=== PATIENT | female | born 1995 | race Caucasian/White ===

== ENCOUNTER 2018-02-12 08:08 | Day surgery (SDC) | payer BC ==
[~2018-02-12 08:08] MED LIST: Lactated Ringers 1,000 ML IV SCH; Lidocaine 1%/Sod Bicarbonate in NS 8.4% 1 ML Syringe IDERM PRN; Scopolamine 1.5 MG Transdermal Patch TOP SCH; Sodium Chloride 0.9% 10 ML Syringe FLUSH PRN
[2018-02-12] MEDS ORDERED: EPINEPHrine 1 MG/ML 30 ML MDV ONE (09:30)
[2018-02-12] MEDS ORDERED: Bupivacaine 0.25% 30 ML SDV ONE (09:30)
[2018-02-12] MEDS ORDERED: Midazolam 1 MG/ML 2 ML SDV ONE (09:33)
[2018-02-12] MEDS ORDERED: Lidocaine 1% 4 ML ONE (09:33)
[2018-02-12] MEDS ORDERED: Dexamethasone 4 MG/ML SDV ONE (09:33)
[2018-02-12] MEDS ORDERED: Ondansetron 4 MG/2 ML SDV ONE (09:33)
[2018-02-12] MEDS ORDERED: fentaNYL 250 MCG/5 ML SDV ONE (09:33)
[2018-02-12] MEDS ORDERED: Propofol 200 MG/20 ML SDV ONE ×2 (09:33→09:34)
--- NOTE | 2018-02-12 09:37 | PCM.PREANE ---
Preanesthetic Assessment - Anesthesia/Transfusion/Family Hx Anesthesia History: Prior Anesthesia Reaction Type of Anesthesia Reaction: Excessive Somnolence, Excessive Nausea/Vomiting Family History of Anesthesia Reaction: No - Review of Systems General: No Symptoms Pulmonary: No Symptoms Cardiovascular: No Symptoms Gastrointestinal: No Symptoms Neurological: Dizziness, Pre-Existing Deficit (Chronic pain from rib fractures. ), Tremors (Right hand) - Physical Assessment NPO Status Date: 02/11/18 NPO Status Time: 23:00 O2 Sat by Pulse Oximetry: 97 Respiratory Rate: 16 Vital Signs: Last Vital Signs Temp 37.1 C 02/12/18 09:10 Pulse 93 02/12/18 09:10 Resp 16 02/12/18 09:10 BP 136/88 02/12/18 09:10 Pulse Ox 97 02/12/18 09:10 Height: 1.8 m Weight: 125.192 kg ASA Class: 2 Mental Status: Alert & Oriented x3 Airway Class: Mallampati = 1 Dentition: Reports: Normal Dentition (Wire behind upper teeth. Permanent.) Thyro-Mental Finger Breadths: 3 Mouth Opening Finger Breadths: 3 ROM/Head Extension: Full Lungs: Clear to Auscultation, Normal Respiratory Effort Cardiovascular: Regular Rate, Regular Rhythm, Murmurs - Lab Values: Laboratory Last Values Urine HCG, Qual Negative (NEGATIVE) 02/12/18 08:30 MRSA (PCR) Negative 01/27/18 16:02 - Allergies Allergies/Adverse Reactions: Allergies Allergy/AdvReac Type Severity Reaction Status Date / Time alprazolam [From Xanax] Allergy Chest Pain Verified 02/11/18 12:12 latex Allergy Itching Verified 02/11/18 12:12 triamcinolone Allergy Hives Verified 02/11/18 12:12 - Acknowledgements Anesthesia Type Planned: General Anesthesia, Regional Block (Adductor Canal Block Post Op ) Pt an Appropriate Candidate for the Planned Anesthesia: Yes Alternatives and Risks of Anesthesia Discussed w Pt/Guardian: Yes Pt/Guardian Understands and Agrees with Anesthesia Plan: Yes PreAnesthesia Questionnaire HEENT History: Reports: Allergic Rhinitis, Other (See Below) Other HEENT History: Maxillary sinus cyst Cardiovascular History: Reports: Heart Murmur Respiratory History: Reports: SOB, Other (See Below) Other Respiratory History: Painful respiration from rib fractures, chest tightness Other Gastrointestinal History: Abdominal pain Genitourinary History: Reports: Pyelonephritis 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) Other OB/BYN History: Irregular menses, menorrhagia Other Musculoskeletal History: Rib pain, rib fractures Neurological History: Reports: Vertigo, Other (See Below) Other Neuro History: Right hand tremors Psychiatric History: Reports: None Endocrine/Metabolic History: Reports: Obesity/BMI 30+ Hematologic History: Reports: None Immunologic History: Reports: None Oncologic (Cancer) History: Reports: None Dermatologic History: Reports: Eczema - Infectious Disease History Infectious Disease History: Reports: None - Past Surgical History Head Surgeries/Procedures: Reports: None HEENT Surgical History: Reports: None Cardiovascular Surgical History: Reports: None Respiratory Surgical History: Reports: None GI Surgical History: Reports: Appendectomy, Cholecystectomy Female Surgical History: Reports: None Endocrine Surgical History: Reports: None Neurological Surgical History: Reports: None Musculoskeletal Surgical History: Reports: Other (See Below) Other Musculoskeletal Surgeries/Procedures:: Bunionectomy Oncologic Surgical History: Reports: None Dermatological Surgical History: Reports: None - SUBSTANCE USE Smoking Status *Q: Never Smoker Tobacco Use Within Last Twelve Months: No Second Hand Smoke Exposure: No Days Per Week of Alcohol Use: 0 Recreational Drug Use History: No - HOME MEDS Home Medications: Home Meds Calcium Carb/D3/Magnesium/Zinc [Lico Mag Zinc + D Tablet] 1 tab PO DAILY [History] Cholecalciferol (Vitamin D3) [Vitamin D3] 2,000 unit PO DAILY 02/11/18 [History] Cyanocobalamin (Vitamin B12) [Vitamin B12] 1,000 mcg PO DAILY 02/11/18 [History] Loratadine [Claritin] 10 mg PO DAILY PRN 02/11/18 [History] Multivitamin [Daily Multiple Vitamin] 1 tab PO DAILY 02/11/18 [History] Vitamin B6-pyridOXINE [Vitamin B6] 100 mg PO DAILY 02/11/18 [History] Acetaminophen/HYDROcodone [[place] 325-5 MG] 1 - 2 tab PO Q6H PRN #40 tablet 02/12 [Rx] Aspirin 325 mg PO BID #84 tab 02/12/18 [Rx] - CURRENT (IN HOUSE) MEDS Current Meds: Current Medications Lactated Ringer's (Ringers, Lactated) 1,000 mls @ 125 mls/hr IV ASDIRECTED ZUHAIR Stop: 02/12/18 18:00 Last Admin: 02/12/18 09:21 Dose: 125 mls/hr Lidocaine/Sodium Bicarbonate (Buffered Lidocaine 1% In Ns 8.4%) 0.25 ml IDERM ONETIME PRN PRN Reason: Prior to IV Start Stop: 02/12/18 18:00 Last Admin: 02/12/18 09:00 Dose: 0.25 ml Scopolamine (Transderm-Scop) 1.5 mg TOP ONETIME ZUHAIR Stop: 02/12/18 18:00 Last Admin: 02/12/18 09:03 Dose: 1.5 mg Sodium Chloride (Saline Flush) 10 ml FLUSH ASDIRECTED PRN PRN Reason: Keep Vein Open Stop: 02/12/18 18:00 Discontinued Medications Bupivacaine HCl (Marcaine 0.25%) Confirm Administered Dose 30 ml .ROUTE .STK- MED ONE Stop: 02/12/18 09:31 Epinephrine HCl (Adrenalin) Confirm Administered Dose 30 mg .ROUTE .STK-MED ONE Stop: 02/12/18 09:31 Lactated Ringer's (Ringers, Lactated) 1,000 mls @ 125 mls/hr IV ASDIRECTED ZUHAIR Stop: 02/12/18 18:00 Lidocaine/Sodium Bicarbonate (Buffered Lidocaine 1% In Ns 8.4%) 0.25 ml IDERM ONETIME PRN PRN Reason: Prior to IV Start Stop: 02/12/18 18:00 Sodium Chloride (Saline Flush) 10 ml FLUSH ASDIRECTED PRN PRN Reason: Keep Vein Open Stop: 02/12/18 18:00
[2018-02-12] MEDS ORDERED: ceFAZolin 1 GM Vial ONE ×2 (09:42→10:16)
[2018-02-12] MEDS ORDERED: EPINEPHrine 1 MG/ML 30 ML MDV SCH (09:45)
[2018-02-12] MEDS ORDERED: Ketamine 500 mg/10 ML MDV ONE (10:12)
[2018-02-12] MEDS ORDERED: HYDROmorphone 0.5 MG/0.5 ML Syringe ONE (10:37)
[2018-02-12] MEDS ORDERED: Meperidine PF 50 MG/ML Syringe ONE (10:58)
--- NOTE | 2018-02-12 11:03 | PCM.POSTAN ---
POST ANESTHESIA ASSESSMENT - MENTAL STATUS Mental Status: Somnolent - VITAL SIGNS Pulse Rate: 82 SaO2: 97 Resp Rate: 17 Blood Pressure: 128/69 Temperature: 36.4 C - RESPIRATORY Respiratory Status: Respiratory Rate WNL, Airway Patent, O2 Saturation Stable, Supplemental Oxygen - CARDIOVASCULAR CV Status: Pulse Rate WNL, Blood Pressure Stable - GASTROINTESTINAL GI Status: No Symptoms - PAIN Pain Score: 0 - POST OP HYDRATION Hydration Status: Adequate & Stable
[2018-02-12] MEDS ORDERED: fentaNYL 100 MCG/2 ML SDV IVPUSH PRN (11:06)
[2018-02-12] MEDS ORDERED: diphenhydrAMINE 50 MG/ML SDV IVPUSH PRN (11:06)
[2018-02-12] MEDS ORDERED: HYDROmorphone 0.5 MG/0.5 ML Syringe IVPUSH ONE (11:06)
[2018-02-12] MEDS ORDERED: Ondansetron 4 MG/2 ML SDV IVPUSH PRN (11:06)
[2018-02-12] MEDS ORDERED: Meperidine PF 50 MG/ML Syringe IVPUSH PRN (11:06)
[2018-02-12 14:43] VITALS: BP 128/69
--- NOTE | 2018-02-12 14:43 | PCM48HPAN ---
Post Anesthesia Note - EVALUATION WITHIN 48HRS OF ANESTHETIC Vital Signs in Normal Range: Yes Patient Participated in Evaluation: Yes Respiratory Function Stable: Yes Airway Patent: Yes Cardiovascular Function Stable: Yes Hydration Status Stable: Yes Pain Control Satisfactory: Yes Nausea and Vomiting Control Satisfactory: Yes Mental Status Recovered: Yes Pulse Rate: 82 Resp Rate: 20 Temperature: 36.4 C Blood Pressure: 128/69
--- NOTE | 2018-02-17 07:04 | PCM.OPNOTE ---
- General Post-Op/Procedure Note Date of Surgery/Procedure: 02/12/18 Operative Procedure(s): right knee video arthrosocpy with chondroplasty of the patella Pre Op Diagnosis: right knee patellofemoral malalignment Post-Op Diagnosis: right knee patellar chondromalacia Anesthesia Technique: General LMA, Local Primary Surgeon: Ton Billy Anesthesia Provider: Juan C Wright Automation Operator: Elsa Louie EBErick in mLs: 5 Complications: None Condition: Good
--- NOTE | 2018-02-17 07:42 | OR ---
DATE OF OPERATION: 02/12/2018 SURGEON: Ton Billy MD OPERATION PERFORMED: Right knee video arthroscopy with chondroplasty of the patella. PREOPERATIVE DIAGNOSIS: Right knee patellofemoral malalignment. POSTOPERATIVE DIAGNOSIS: Right knee patellar chondromalacia. ANESTHESIA: General LMA with local. ANESTHESIA PROVIDER: Juan C Wright. CAMERA MACHINIST: Elsa Louie PA-C. ESTIMATED BLOOD LOSS: Less than 5 mL. COMPLICATIONS: None. CONDITION: Stable. DESCRIPTION OF PROCEDURE: The patient was identified in the preoperative holding area. Proper site was marked and identified by the surgeon. The patient was taken back to the operating theater, where after adequate anesthesia, the patient was placed supine on a radiolucent table. Right lower extremity was then sterilely prepped and draped in the usual sterile fashion. OR time-out was performed. The patient received 2 g of IV Ancef. Right lower extremity was then exsanguinated. Tourniquet was insufflated to 250 mmHg. Standard anterolateral portal incision was created and scope trocar was introduced. The patient had no loose foreign bodies. The patient did have significant grade 2 chondromalacia of the medial facet. At this time, attention was turned to the medial compartment. There were no signs of chondromalacia or medial meniscus tear. ACL was intact in the notch. Lateral compartment showed no signs of chondromalacia or lateral meniscus tear. At this time, a posterolateral portal was then made, and the patient's knee was brought through range of motion, it was shown to have no lateral subluxation of the patella whatsoever as it was brought through range of motion. At this time, a chondroplasty of the medial facet was then performed back to a smooth border. Excess saline was drained from the knee. A 3-0 nylon simple suture was used for closure of the skin. The patient was sent to PACU in stable condition, in a sterile soft dressing. MMODAL /[id number]
== END 2018-02-12 14:10 | disposition home or self-care (01) ==
LOC: JD.SDS 08:08
PROVIDERS: ATTEND Orthopaedic Surgery
DX: M22.41 Chondromalacia patellae, right knee (principal); E66.9 Obesity, unspecified; J30.2 Other seasonal allergic rhinitis; Z90.49 Acquired absence of other specified parts of digestive tract; Z88.8 Allergy status to other drugs, medicaments and biological substances; Z91.040 Latex allergy status; Z79.899 Other long term (current) drug therapy; Z68.37 Body mass index [BMI] 37.0-37.9, adult
CPT/HCPCS: 29877; 81025; 87641; A9270; J0171; J0690; J1100; J1170; J2001; J2175; J2250; J2405; J3010; J3490; J7120; 01400; J2704

== ENCOUNTER 2018-02-16 12:09 | Emergency (ER) | payer BC ==
[2018-02-16 12:17] VITALS: BP 140/93
--- NOTE | 2018-02-16 12:34 | EDM.PDOC ---
<Babita Arellano - Last Filed: 02/16/18 12:23> ED HPI GENERAL MEDICAL PROBLEM - General Chief Complaint: Lower Extremity Injury/Pain Stated Complaint: POST SURGICAL ISSUES,RIGHT LEG Time Seen by Provider: 02/16/18 12:15 Right Knee Pain Score (Numeric/FACES): 3 - Related Data Allergies Allergy/AdvReac Type Severity Reaction Status Date / Time alprazolam [From Xanax] Allergy Chest Pain Verified 02/16/18 12:16 latex Allergy Itching Verified 02/16/18 12:16 triamcinolone Allergy Hives Verified 02/16/18 12:16 Home Meds: Home Meds Calcium Carb/D3/Magnesium/Zinc [Lico Mag Zinc + D Tablet] 1 tab PO DAILY [History] Cholecalciferol (Vitamin D3) [Vitamin D3] 2,000 unit PO DAILY 02/11/18 [History] Cyanocobalamin (Vitamin B12) [Vitamin B12] 1,000 mcg PO DAILY 02/11/18 [History] Loratadine [Claritin] 10 mg PO DAILY PRN 02/11/18 [History] Multivitamin [Daily Multiple Vitamin] 1 tab PO DAILY 02/11/18 [History] Vitamin B6-pyridOXINE [Vitamin B6] 100 mg PO DAILY 02/11/18 [History] Acetaminophen/HYDROcodone [[place] 325-5 MG] 1 - 2 tab PO Q6H PRN #40 tablet 02/12 [Rx] Aspirin 325 mg PO BID #84 tab 02/12/18 [Rx] Past Medical History HEENT History: Reports: Allergic Rhinitis, Other (See Below) Other HEENT History: Maxillary sinus cyst Cardiovascular History: Reports: Heart Murmur Respiratory History: Reports: SOB, Other (See Below) Other Respiratory History: Painful respiration from rib fractures, chest tightness Other Gastrointestinal History: Abdominal pain Genitourinary History: Reports: Pyelonephritis 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) Other OB/BYN History: Irregular menses, menorrhagia Other Musculoskeletal History: Rib pain, rib fractures Neurological History: Reports: Vertigo, Other (See Below) Other Neuro History: Right hand tremors Psychiatric History: Reports: None Endocrine/Metabolic History: Reports: Obesity/BMI 30+ Hematologic History: Reports: None Immunologic History: Reports: None Oncologic (Cancer) History: Reports: None Dermatologic History: Reports: Eczema - Infectious Disease History Infectious Disease History: Reports: None - Past Surgical History Head Surgeries/Procedures: Reports: None HEENT Surgical History: Reports: None Cardiovascular Surgical History: Reports: None Respiratory Surgical History: Reports: None GI Surgical History: Reports: Appendectomy, Cholecystectomy Female Surgical History: Reports: None Endocrine Surgical History: Reports: None Neurological Surgical History: Reports: None Musculoskeletal Surgical History: Reports: Other (See Below) Other Musculoskeletal Surgeries/Procedures:: Bunionectomy Oncologic Surgical History: Reports: None Dermatological Surgical History: Reports: None Social & Family History - Caffeine Use Caffeine Use: Reports: None Course - Vital Signs Last Recorded V/S: Last Vital Signs Temp 97.0 F 02/16/18 12:13 Pulse 93 02/16/18 12:13 Resp 16 02/16/18 12:13 BP 140/93 H 02/16/18 12:13 Pulse Ox 99 02/16/18 12:13 - Orders/Labs/Meds Orders: Active Orders 24 hr Category Date Time Status Cardiac Monitoring [RC] . DIRECTED Care 02/16/18 12:37 Active Head wo Cont [CT] Stat Exams 02/16/18 12:39 Taken VL Duplex Lwr Ext Veins Ltd Rt [US] Stat Exams 02/16/18 13:50 Taken Labs: Laboratory Tests 02/16/18 02/16/18 02/16/18 Range/Units 13:04 13:04 13:04 WBC 12.49 H (3.98-10.04) K/mm3 RBC 4.76 (3.98-5.22) M/mm3 Hgb 13.6 (11.2-15.7) gm/L Hct 40.8 (34.1-44.9) % MCV 85.7 (79.4-94.8) fl MCH 28.6 (25.6-32.2) pg MCHC 33.3 (32.2-35.5) g/dl RDW Std Deviation 43.0 (36.4-46.3) fL Plt Count 357 (182-369) K/mm3 MPV 8.9 L (9.4-12.3) fl Neut % (Auto) 71.3 H (34.0-71.1) % Lymph % (Auto) 19.7 (19.3-51.7) % Dickens % (Auto) 5.8 (4.7-12.5) % Eos % (Auto) 2.8 (0.7-5.8) Baso % (Auto) 0.2 (0.1-1.2) % Neut # (Auto) 8.90 H (1.56-6.13) K/mm3 Lymph # (Auto) 2.46 (1.18-3.74) K/mm3 Dickens # (Auto) 0.73 H (0.24-0.36) K/mm3 Eos # (Auto) 0.35 (0.04-0.36) K/mm3 Baso # (Auto) 0.02 (0.01-0.08) K/mm3 ESR 28 H (0-20) mm/hr Sodium 135 L (136-145) mEq/L Potassium 3.8 (3.5-5.1) mEq/L Chloride 101 (98-107) mEq/L Carbon Dioxide 26 (21-32) mEq/L Anion Gap 11.8 (5-15) BUN 11 (7-18) mg/dL Creatinine 0.8 (0.55-1.02) mg/dL Est Cr Clr Drug Dosing 124.33 mL/min Estimated GFR (MDRD) > 60 (>60) mL/min BUN/Creatinine Ratio 13.8 L (14-18) Glucose 97 (74-106) mg/dL Calcium 9.5 (8.5-10.1) mg/dL Magnesium 1.9 (1.8-2.4) mg/dl Total Bilirubin 0.6 (0.2-1.0) mg/dL AST 22 (15-37) U/L ALT 35 (14-59) U/L Alkaline Phosphatase 71 (46-116) U/L C-Reactive Protein 2.3 H* (<1.0) mg/dL Total Protein 7.7 (6.4-8.2) g/dl Albumin 3.7 (3.4-5.0) g/dl Globulin 4.0 gm/dL Albumin/Globulin Ratio 0.9 L (1-2) Meds: Medications Discontinued Medications Generic Name Dose Route Start Last Admin Trade Name Freq PRN Reason Stop Dose Admin Hydrocodone Bitart/Acetaminophen 2 tab 02/16/18 14:33 02/16/18 14:43 [place] 325-5 Mg PO 02/16/18 14:34 1 tab ONETIME ONE Administration Ondansetron HCl 4 mg 02/16/18 13:51 02/16/18 13:57 Zofran Odt PO 02/16/18 13:52 4 mg ONETIME ONE Administration Departure - Departure Disposition: Home, Self-Care 01 Clinical Impression: Numbness in right leg, Postoperative pain of right knee - Discharge Information Referrals: Yasmin Lay NP [Primary Care Provider] - 1 Week Stephon Juarez MD [Ordering Only Provider] - Forms: ED Department Discharge Additional Instructions: Continue with Dr Billy's post operative plan. I have scheduled an MRI of your brain tomorrow at 9am. Please come at 8:30am to register. Follow up with Dr Juarez. Please return if you are worse. - My Orders Last 24 Hours: My Active Orders 02/16/18 12:37 Cardiac Monitoring [RC] . DIRECTED 02/16/18 12:39 Head wo Cont [CT] Stat 02/16/18 13:50 VL Duplex Lwr Ext Veins Ltd Rt [US] Stat - Assessment/Plan Last 24 Hours: My Active Orders 02/16/18 12:37 Cardiac Monitoring [RC] . DIRECTED 02/16/18 12:39 Head wo Cont [CT] Stat 02/16/18 13:50 VL Duplex Lwr Ext Veins Ltd Rt [US] Stat <Keenan Campa - Last Filed: 02/16/18 15:28> ED HPI GENERAL MEDICAL PROBLEM - General Source of Information: Reports: Patient History Limitations: Reports: No Limitations - History of Present Illness INITIAL COMMENTS - FREE TEXT/NARRATIVE: The patient presents with right knee pain and numbness. She had a knee scope by Dr Bilyl on the 12 of February. She said for a few days before that she had some numbness in the right leg. This did get better before the surgery but it was not gone. They did general anaesthesia. When she woke up, she had numbness to her right leg from just above the knee and down. They had a hard time getting a pulse in that leg. That slowly got better and she was able to be discharged. Two days later she developed the numbness in her right leg from just above the knee to her foot. She still has good strength. She also has pain behind her knee and lateral to her knee. She gets diaphoretic and nauseated when she takes the aspirin. She has no history of DVT or PE. She said she was diagnosed with vertigo a while back. She was seen here, [place] and then [place] and it was vertigo. She also had a tremor in her right hand that was gone after surgery. She denies fever, chills, cough, chest pain or shortness of breath. She does have a slight frontal headache. She has no neurologic deficits anywhere else. Onset: Gradual Duration: Day(s): Location: Reports: Lower Extremity, Right Quality: Reports: Other (Numbness) Severity: Severe Improves with: Reports: None Worsens with: Reports: None Associated Symptoms: Reports: No Other Symptoms Review of Systems - Review of Systems Review Of Systems: See Below Constitutional: Reports: No Symptoms Eyes: Reports: No Symptoms Ears: Reports: No Symptoms Nose: Reports: No Symptoms Mouth/Throat: Reports: No Symptoms Respiratory: Reports: No Symptoms Cardiovascular: Reports: No Symptoms GI/Abdominal: Reports: No Symptoms Genitourinary: Reports: No Symptoms Musculoskeletal: Reports: Other (Pain to right knee and numbness to that leg) ED EXAM, GENERAL - Physical Exam Exam: See Below Exam Limited By: No Limitations General Appearance: Alert, No Apparent Distress Ears: Normal External Exam Nose: Normal Inspection Head: Atraumatic, Normocephalic Neck: Normal Inspection Respiratory/Chest: No Respiratory Distress, Lungs Clear, Normal Breath Sounds Cardiovascular: Regular Rate, Rhythm, No Edema, No Murmur GI/Abdominal: Soft, Non-Tender, No Organomegaly, No Mass Back Exam: Normal Inspection Extremities: Other (2 lateral incisions to the right knee with pain upon palpation and mild edema. Good pulses distally. Grossly numb to just above the knee to her foot) Neurological: Alert, Oriented, Other (Equal strength in her legs but she is grossly numb from just above the knee to her foot on the right side.) Course - Re-Assessments/Exams Free Text/Narrative Re-Assessment/Exam: 02/16/18 14:59 I ordered an US of her leg, CT of her head and labs. She had some nausea so I ordered zofran and some hydrocodone for the pain. 02/16/18 15:23 Her WBC was 12.49. Her CRP was elevated at 2.3. Her ESR was elevated at 28. The CT of her head shows nothing acute. The US of her leg shows no DVT. She still has the numbness. I am not sure what is going on with the numbness. I will get an MRI of her brain tomorrow. I will call Dr Billy and let him know what is going on. Departure - Departure Time of Disposition: 15:30 Condition: Good
[2018-02-16] MEDS ORDERED: Ondansetron 4 MG Tab.DIS PO ONE (13:51)
[2018-02-16] MEDS ORDERED: Acetaminophen/HYDROcodone 325-5 MG Tab PO ONE (14:33)
--- NOTE | 2018-02-17 08:41 | US ---
Right lower extremity deep venous ultrasound: Duplex and color flow imaging was obtained of the right common femoral, superficial femoral, proximal greater saphenous, popliteal, posterior tibial and peroneal veins. Left common femoral vein was also evaluated. Poor phasic flow seen within the peroneal vein but normal compression and augmentation seen within this vein. Other veins show normal phasic flow, augmentation and compression. Impression: 1. No evidence of deep venous thrombosis within the right lower extremity or within the left common femoral vein. Diagnostic code #1 I agree with preliminary report from [facility], finalized at 04/18/18, 3:51 PM Central Time
--- NOTE | 2018-02-17 09:25 | CT ---
Head CT Technique: Multiple axial sections through the brain were obtained. Intravenous contrast was not utilized. Comparison: Prior head CT study of 03/28/15 and MRI of 04/14/15. Findings: Ventricles along with basal cisterns and sulci over the convexities are within normal limits. Mild areas of mucosal thickening are noted within the ethmoid and sphenoid sinuses which is felt to be incidental and chronic. No acute calvarial abnormality is seen. No abnormal parenchymal densities are seen. No evidence of intracranial hemorrhage. No midline shift or mass effect is seen. Impression: 1. Sinus findings felt to be incidental. 2. No acute intracranial abnormality is identified. Diagnostic code #2 I agree with preliminary report from [facility], finalized at 02/16/18, 2:25 PM Central Time
== END 2018-02-16 15:35 | disposition home or self-care (01) ==
LOC: JD.ED 12:09
DX: G89.18 Other acute postprocedural pain (principal); M25.561 Pain in right knee; R20.0 Anesthesia of skin; Z79.899 Other long term (current) drug therapy; Z91.040 Latex allergy status; Z88.8 Allergy status to other drugs, medicaments and biological substances
CPT/HCPCS: 36415; 70450; 80053; 83735; 85025; 85652; 86140; 93971; 99284; A9270; 99283

== ENCOUNTER 2019-11-16 15:50 | Emergency (ER) | payer BC ==
[2019-11-16 16:25] VITALS: BP 148/87; PULSE 84
--- NOTE | 2019-11-16 16:58 | EDM.PDOC ---
ED HPI GENERAL MEDICAL PROBLEM - General Chief Complaint: Abdominal Pain Stated Complaint: VOMITING/NUMBNESS IN LEGS Time Seen by Provider: 11/16/19 16:57 Source of Information: Reports: Patient History Limitations: Reports: No Limitations - History of Present Illness INITIAL COMMENTS - FREE TEXT/NARRATIVE: 24-year-old female presents to the ED with diffuse epigastric abdominal pain. Did not feel well at work today legs were weak complains of increased pain in all of her joints. Patient has fibromyalgia syndrome. Her to feel nauseated about 1300 hrs. and this progressed to finally vomiting at 1500 hrs. and on the second emesis it contained about a teaspoon of fresh blood. She has never had hematemesis before. She has a history of gallbladder removal in 2013 and appendectomy 2014. Chronic loose stools usually 1 to 3/day since her gallbladder was removed. Was noted to have free reflux of bile salts into her stomach on a recent wisdom tooth extraction on suctioning. She does not use any anti-inflammatories. She takes cyclobenzaprine as needed for her chronic myalgia fibromyalgia. Never been on Tums or Rolaids. She is recently started on iron supplement due to a very low serum iron with maintained hemoglobin in the 14s. Took the first tablet of this at 1400 hrs. today. She reports however she was already nauseated before she took that tablet. She is lying in the left position and having significant epigastric abdominal pain. Remains nauseated on a intermittent basis. She is on her third day of her menstrual cycle and denies any possibility of . Does have very heavy menses which is felt to be contributing to the iron deficiency. 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 Onset: Today Onset Date: 11/16/19 Onset Time: 15:00 (Vomited twice 15 minutes apart without any dry heaving or retching in between.) Duration: Minutes: Location: Reports: Abdomen Quality: Reports: Ache (Pain in the epigastrium rating through to her back), Burning, Stabbing Severity: Moderate Improves with: Reports: None Worsens with: Reports: Breathing (Breathing makes the pain worse.) Context: Denies: Activity, Exercise, Lifting, Sick Contact, Trauma, Other Associated Symptoms: Reports: Loss of Appetite, Malaise, Nausea/Vomiting ( Hematemesis.), Weakness. 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.) Headache Pain Score (Numeric/FACES): 4 - Related Data Allergies Allergy/AdvReac Type Severity Reaction Status Date / Time alprazolam [From Xanax] Allergy Chest Pain Verified 11/16/19 16:24 latex Allergy Itching Verified 11/16/19 16:24 triamcinolone Allergy Hives Verified 11/16/19 16:24 Home Meds: Home Meds Calcium Carb/D3/Magnesium/Zinc [Lico Mag Zinc + D Tablet] 1 tab PO DAILY [History] Cholecalciferol (Vitamin D3) [Vitamin D3] 5,000 unit PO DAILY 02/11/18 [History] Cyanocobalamin (Vitamin B12) [Vitamin B12] 1,000 mcg PO DAILY 02/11/18 [History] Loratadine [Claritin] 10 mg PO DAILY PRN 02/11/18 [History] Multivitamin [Daily Multiple Vitamin] 1 tab PO DAILY 02/11/18 [History] Vitamin B6-pyridOXINE [Vitamin B6] 100 mg PO DAILY 02/11/18 [History] Acetaminophen/HYDROcodone [[place] 325-5 MG] 1 - 2 tab PO Q6H 04/11/18 [History] Amitriptyline [Elavil] 25 mg PO BEDTIME 04/11/18 [History] Ashwagandha 800 mg PO DAILY 04/11/18 [History] Cyclobenzaprine [Flexeril] 10 mg PO DAILY 04/11/18 [History] DULoxetine [Cymbalta] 20 mg PO DAILY 04/11/18 [History] Past Medical History HEENT History: Reports: Allergic Rhinitis Other HEENT History: Maxillary sinus cyst Cardiovascular History: Reports: Heart Murmur Respiratory History: Reports: SOB, Other (See Below) Other Respiratory History: Painful respiration from rib fractures, chest tightness Other Gastrointestinal History: Abdominal pain Genitourinary History: Reports: Pyelonephritis 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: Irregular menses, menorrhagia Other Musculoskeletal History: Rib pain, rib fractures Neurological History: Reports: Vertigo, Other (See Below) Other Neuro History: Right hand tremors Psychiatric History: Reports: Anxiety, Depression Endocrine/Metabolic History: Reports: Obesity/BMI 30+ Hematologic History: Reports: None Immunologic History: Reports: None Oncologic (Cancer) History: Reports: None Dermatologic History: Reports: Eczema - Infectious Disease History Infectious Disease History: Reports: None - Past Surgical History Head Surgeries/Procedures: Reports: None HEENT Surgical History: Reports: Oral Surgery Cardiovascular Surgical History: Reports: None Respiratory Surgical History: Reports: None GI Surgical History: Reports: Appendectomy (Upper scopic), Cholecystectomy ( Laparoscopic) Female Surgical History: Reports: None Neurological Surgical History: Reports: None Musculoskeletal Surgical History: Reports: Arthroscopic Knee, Other (See Below) Oncologic Surgical History: Reports: None Social & Family History - Family History Family Medical History: Noncontributory - Tobacco Use Smoking Status *Q: Never Smoker - Caffeine Use Caffeine Use: Reports: None - Living Situation & Occupation Living situation: Reports: Single, with Family (Parents) 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 Denies: Fever, Chills HEENT: Reports: No Symptoms Respiratory: Reports: No Symptoms Cardiovascular: Reports: No Symptoms Endocrine: Reports: Fatigue GI/Abdominal: Reports: Abdominal Pain (Currently having epigastric abdominal pain), Diarrhea (He has 1-3 loose stools per day since gallbladder was removed on a bile induced catharsis.), Hematemesis (Vomiting today with some hematemesis.), Nausea, Vomiting : Reports: Other (Menorrhagia.) Musculoskeletal: Reports: Muscle Pain (Use) Skin: Reports: No Symptoms ( myalgia labeled as fibromyalgia syndrome.) Neurological: Reports: Confusion, Dizziness, Paresthesia Psychiatric: Reports: Depression Hematologic/Lymphatic: Reports: No Symptoms Immunologic: Reports: No Symptoms ED EXAM, GI/ABD - Physical Exam Exam: See Below Exam Limited By: No Limitations General Appearance: Alert, WD/WN, Moderate Distress, Other (Curled up in the left lateral decubitus position in the position at the time of exam due to severe epigastric pain. Labile vital signs with BP 148/87.) Eyes: Bilateral: Normal Appearance Throat/Mouth: Normal Inspection (No scleral icterus or blepharal pallor.), Normal Lips, Normal Teeth, Normal Oropharynx Head: Atraumatic, Normocephalic Neck: Normal Inspection, Supple, Non-Tender, Full Range of Motion. No: Lymphadenopathy (L), Lymphadenopathy (R) Respiratory/Chest: No Respiratory Distress, Lungs Clear, Normal Breath Sounds, No Accessory Muscle Use, Chest Non-Tender Cardiovascular: Normal Peripheral Pulses, Regular Rate, Rhythm, No Edema, No Gallop, No Murmur, No Rub GI/Abdominal Exam: Soft, Non-Tender, No Organomegaly ( Oertli obese), Guarding , Tender, Abnormal Bowel Sounds, Other (Sounds are fairly quiesced sent in all 4 quadrants.). No: Rigid, Rebound Back Exam: Normal Inspection, Full Range of Motion. No: CVA Tenderness (L), CVA Tenderness (R) Extremities: Normal Inspection, Normal Range of Motion, Other (There is tenderness multiple points in the thighs knees) Neurological: Alert, Oriented, CN II-XII Intact, Normal Cognition, Normal Gait Psychiatric: Normal Affect, Normal Mood Skin Exam: Warm, Dry, Intact, Normal Color, No Rash Course - Vital Signs Last Recorded V/S: Last Vital Signs Temp 36.6 C 11/16/19 16:22 Pulse 84 11/16/19 16:22 Resp 18 11/16/19 16:22 BP 148/87 H 11/16/19 16:22 Pulse Ox 97 11/16/19 16:22 Orthostatic Blood Pressure [ 157/112 Standing] Orthostatic Blood Pressure [ 162/103 Sitting] Orthostatic Blood Pressure [ 135/90 Supine] - Orders/Labs/Meds Orders: Active Orders 24 hr Category Date Time Status Orthostatic Vital Signs [RC] ASDIRECTED Care 11/16/19 16:58 Active VITAMIN B12 [CHEM] Stat Lab 11/16/19 19:20 Ordered Dextrose 5%-0.9% NaCl [Dextrose 5%-Normal Saline] 1,000 Med 11/16/19 17:15 Active ml IV ASDIRECTED Pantoprazole [ProTONIX IV] 80 mg Med 11/16/19 17:15 Active Sodium Chloride 0.9% [Normal Saline] 100 ml IV Q10H Medication Orders Dextrose/Sodium Chloride (Dextrose 5%-Normal Saline) 1,000 mls @ 500 mls/hr IV ASDIRECTED ZUHAIR Last Admin: 11/16/19 17:45 Dose: 500 mls/hr Pantoprazole Sodium 80 mg/ (Sodium Chloride) 100 mls @ 10 mls/hr IV Q10H ZUHAIR Last Admin: 11/16/19 17:52 Dose: 10 mls/hr Labs: Laboratory Tests 11/16/19 11/16/19 11/16/19 Range/Units 17:20 17:20 17:20 WBC 11.06 H (3.98-10.04) K/mm3 RBC 4.97 (3.98-5.22) M/mm3 Hgb 14.5 (11.2-15.7) gm/dl Hct 44.1 (34.1-44.9) % MCV 88.7 D (79.4-94.8) fl MCH 29.2 (25.6-32.2) pg MCHC 32.9 (32.2-35.5) g/dl RDW Std Deviation 44.9 (36.4-46.3) fL Plt Count 385 H (182-369) K/mm3 MPV 9.2 L (9.4-12.3) fl Neut % (Auto) 71.0 (34.0-71.1) % Lymph % (Auto) 20.1 (19.3-51.7) % Gillespie % (Auto) 6.5 (4.7-12.5) % Eos % (Auto) 1.9 (0.7-5.8) Baso % (Auto) 0.3 (0.1-1.2) % Neut # (Auto) 7.86 H (1.56-6.13) K/mm3 Lymph # (Auto) 2.22 (1.18-3.74) K/mm3 Gillespie # (Auto) 0.72 H (0.24-0.36) K/mm3 Eos # (Auto) 0.21 (0.04-0.36) K/mm3 Baso # (Auto) 0.03 (0.01-0.08) K/mm3 Manual Slide Review Normal smear PT 10.5 (9.7-12.0) SECONDS INR 0.96 APTT 27 (22-31) SECONDS Sodium 142 (136-145) mEq/L Potassium 4.1 (3.5-5.1) mEq/L Chloride 105 (98-107) mEq/L Carbon Dioxide 26 (21-32) mEq/L Anion Gap 15.1 H (5-15) BUN 11 (7-18) mg/dL Creatinine 0.8 (0.55-1.02) mg/dL Est Cr Clr Drug Dosing 122.24 mL/min Estimated GFR (MDRD) > 60 (>60) mL/min BUN/Creatinine Ratio 13.8 L (14-18) Glucose 87 (74-106) mg/dL Calcium 9.3 (8.5-10.1) mg/dL Magnesium 2.0 (1.8-2.4) mg/dl Total Bilirubin 0.3 (0.2-1.0) mg/dL AST 12 L (15-37) U/L ALT 24 (14-59) U/L Alkaline Phosphatase 68 (46-116) U/L C-Reactive Protein 0.6 (<1.0) mg/dL Total Protein 8.2 (6.4-8.2) g/dl Albumin 4.0 (3.4-5.0) g/dl Globulin 4.2 gm/dL Albumin/Globulin Ratio 1.0 (1-2) Lipase 80 (73-393) U/L Meds: Medications Generic Name Dose Route Start Last Admin Trade Name Freq PRN Reason Stop Dose Admin Dextrose/Sodium Chloride 1,000 mls @ 500 mls/hr 11/16/19 17:15 11/16/19 17:45 Dextrose 5%-Normal Saline IV 500 mls/hr ASDIRECTED ZUHAIR Administration Pantoprazole Sodium 80 mg/ 100 mls @ 10 mls/hr 11/16/19 17:15 11/16/19 17:52 Sodium Chloride IV 10 mls/hr Q10H ZUHAIR Administration Discontinued Medications Generic Name Dose Route Start Last Admin Trade Name Freq PRN Reason Stop Dose Admin Hydromorphone HCl 0.5 mg 11/16/19 17:08 11/16/19 17:42 Dilaudid IVPUSH 11/16/19 17:09 0.5 mg ONETIME ONE Administration Hydromorphone HCl Confirm 11/16/19 17:36 11/16/19 17:44 Dilaudid Administered 11/16/19 17:37 Not Given Dose 0.5 mg .ROUTE .STK-MED ONE Metoclopramide HCl 7.5 mg 11/16/19 17:07 11/16/19 17:40 Reglan IVPUSH 11/16/19 17:08 7.5 mg ONETIME ONE Administration Metoclopramide HCl Confirm 11/16/19 17:37 11/16/19 17:45 Reglan Administered 11/16/19 17:38 Not Given Dose 10 mg .ROUTE .STK-MED ONE Pantoprazole Sodium 80 mg 11/16/19 17:07 11/16/19 19:09 Protonix Iv IVPUSH 11/16/19 17:08 80 mg BOLUS ONE Administration Pantoprazole Sodium Confirm 11/16/19 17:59 11/16/19 19:08 Protonix Iv Administered 11/16/19 18:00 Not Given Dose 40 mg .ROUTE .STK-MED ONE Pantoprazole Sodium Confirm 11/16/19 19:02 11/16/19 19:08 Protonix Iv Administered 11/16/19 19:03 Not Given Dose 80 mg .ROUTE .STK-MED ONE - Radiology Interpretation Free Text/Narrative:: 24-year-old female presents to the ED with diffuse epigastric abdominal pain radiating through to her back. It was associated with nausea off and on most of the day. She took an iron tablet for the first time today at 1400 hrs. She vomited at 1500 hrs. and initial emesis was mostly bilious. She vomited about 15 minutes later and it contained about a teaspoon of bright red blood. Since then she has been having increased epigastric abdominal pain. She has no history to suggest peptic ulcer disease. She does not take any nonsteroidal anti-inflammatory agents for her fibromyalgia syndrome. She takes cyclobenzaprine for aches and pains. Does not take aspirin either. She usually takes Tylenol PM to try and help sleep at night. 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 Does appreciate a reflux of bile salts into the stomach and is quite nauseated usually first thing in the morning. Lamination reveals tenderness in the epigastrium with some mild guarding. Therefore an x-ray will be done to make sure there is no free air. The meantime she will be treated with D5 normal saline at 500 mils per hour. Protonix drip will be started at 8 mg/h and she will receive 80 mg IV bolus. Given Reglan 7.5 mg IV for nausea relief and Dilaudid 0.5 mg IV for pain relief. - Re-Assessments/Exams Free Text/Narrative Re-Assessment/Exam: 11/16/19 18:24 White count is 11.06. He differential shows 71% neutrophils 20% lymphocytes. Hemoglobin is 14.5 with hematocrit of 44.1 platelet count 385, 000. The smear is normal. PT is 10.5 with an INR of 0.96 and a PTT of 27. Sodium 142 with a potassium of 4.1. Chloride is 105 with a bicarb of 26. Anion gap is 15.1. BUN is 11 with a creatinine of 0.8. Estimated GFR is greater than 60. Glucose is 87 with a calcium of 9.3. Magnesium is 2.0 liver function is normal C-reactive protein is 0.6 total protein 8.2 with an albumin fraction of 4.0 serum lipase is 80. B reveals increased stool with particulate throughout the right hemicolon and scattered gas throughout the remainder of the colon. There are no signs of bowel obstruction and no free air. 11/16/19 19:00: Patient is feeling better from the point of view of her abdominal pain. Still present but not near as intense as it was. The x-ray of the abdomen showed increased stool throughout the right hemicolon and parts of the transverse colon but the rectal vault and most of the descending colon were empty. 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 She is complaining of [id number] sensation in the soles of her feet which may be related to B12 deficiency after 3 years of diarrhea and not able to absorb B12. I will order a B12 level on the labs that we joss earlier. There is no clinical evidence that she had a significant upper GI bleed today. She may have broken a blood vessel in her stomach with the initial emesis or she may have dyspepsia and early peptic ulcer disease. Going to keep her on Protonix 40 mg tablet once daily and I am going to place her on a trial of Colestid 1 g once daily primarily at bedtime to help bring the bile salt induced catharsis under control and hopefully clear up chronic diarrhea which is contributing to her malnutrition and likely a lot of her abdominal cramping pain. Advise follow-up with personal care provider in 10 days time to make sure she is getting along okay. Departure - Departure Time of Disposition: 19:22 Disposition: Home, Self-Care 01 Condition: Fair Clinical Impression: Upper abdominal pain, Nausea and vomiting in adult, Chronic diarrhea Hematemesis/vomiting blood Qualifiers: Nausea presence: with nausea Qualified Code(s): K92.0 - Hematemesis - Discharge Information *PRESCRIPTION DRUG MONITORING PROGRAM REVIEWED*: Not Applicable *COPY OF PRESCRIPTION DRUG MONITORING REPORT IN PATIENT YELITZA: Not Applicable Instructions: Nausea and Vomiting, Adult, [id number] Referrals: Elina Reyez, [employer] [Primary Care Provider] - Forms: ED Department Discharge Additional Instructions: Evaluation in the emergency room today in regards to generalized nausea and vomiting x2 with a small amount of blood on second emesis. This is concerning for possible peptic ulcer disease or you may have broken a blood vessel in your stomach from vomiting hard the first time. Lab test do not show any evidence of significant upper GI bleeding. The history suggest chronic diarrhea from bile salt induced catharsis since her gallbladder was removed causing chronic diarrhea and malnutrition. X-ray of your abdomen showed some increased stool throughout the right hemicolon and I would continue the MiraLAX 17 g once daily. I would suggest starting Colestid 1 g a day bedtime or at other times of the day where you will not be mixing it with any other medication to bring the diarrhea under control. It usually works the best taken at bedtime on empty stomach. Because we make most of her bowel sounds were were sleeping. Also need Protonix 40 mg once daily to reduce the acid in your stomach and allow any ulcer in the stomach to heal over the next month. But could be taken morning or bedtime but usually bedtime as we make acid during the night when we are sleeping without any food to mix with it. Sepsis Event Note - Evaluation Sepsis Screening Result: No Definite Risk - Focused Exam Vital Signs: Vital Signs Temp Pulse Resp BP Pulse Ox 11/16/19 16:22 36.6 C 84 18 148/87 H 97 Date Exam was Performed: 11/16/19 Time Exam was Performed: 19:20 - My Orders Last 24 Hours: My Active Orders 11/16/19 16:58 Orthostatic Vital Signs [RC] ASDIRECTED 11/16/19 17:15 Dextrose 5%-0.9% NaCl [Dextrose 5%-Normal Saline] 1,000 ml IV ASDIRECTED Pantoprazole [ProTONIX IV] 80 mg Sodium Chloride 0.9% [Normal Saline] 100 ml IV Q10H 11/16/19 19:20 VITAMIN B12 [CHEM] Stat - Assessment/Plan Last 24 Hours: My Active Orders 11/16/19 16:58 Orthostatic Vital Signs [RC] ASDIRECTED 11/16/19 17:15 Dextrose 5%-0.9% NaCl [Dextrose 5%-Normal Saline] 1,000 ml IV ASDIRECTED Pantoprazole [ProTONIX IV] 80 mg Sodium Chloride 0.9% [Normal Saline] 100 ml IV Q10H 11/16/19 19:20 VITAMIN B12 [CHEM] Stat
[2019-11-16] MEDS ORDERED: Pantoprazole 40 MG Vial IVPUSH ONE (17:07)
[2019-11-16] MEDS ORDERED: Metoclopramide 10 MG/2 ML SDV IVPUSH ONE (17:07)
[2019-11-16] MEDS ORDERED: HYDROmorphone 0.5 MG/0.5 ML Syringe IVPUSH ONE (17:08)
[2019-11-16] MEDS ORDERED: Pantoprazole 80 MG in Sodium Chloride 0.9% 100 ML IV SCH (17:15)
[2019-11-16] MEDS ORDERED: Dextrose 5%-0.9% NaCl 1,000 ML IV SCH (17:15)
[2019-11-16] MEDS ORDERED: HYDROmorphone 0.5 MG/0.5 ML Syringe ONE (17:36)
[2019-11-16] MEDS ORDERED: Metoclopramide 10 MG/2 ML SDV ONE (17:37)
[2019-11-16] MEDS ORDERED: Pantoprazole 40 MG Vial ONE ×2 (17:59→19:02)
--- NOTE | 2019-11-16 19:15 | CR ---
Abdomen: Supine view of the abdomen was obtained. Comparison: No prior abdominal x-ray. Surgical clips are seen from prior cholecystectomy. Surgical material is also seen off the cecum. Calcification within left pelvis is seen likely representing phlebolith. Bowel gas pattern is normal. Bony structures are unremarkable for the patient's age. Impression: 1. Findings as noted above. 2. Nothing acute is seen. Diagnostic code #2 Study was dictated in [place] Standard Time
== END 2019-11-16 19:45 | disposition home or self-care (01) ==
LOC: JD.ED 15:50
DX: K92.0 Hematemesis (principal); R10.10 Upper abdominal pain, unspecified; R10.13 Epigastric pain; R19.7 Diarrhea, unspecified; F41.9 Anxiety disorder, unspecified; F32.9 Major depressive disorder, single episode, unspecified; E66.9 Obesity, unspecified; Z88.8 Allergy status to other drugs, medicaments and biological substances; Z91.040 Latex allergy status; Z79.899 Other long term (current) drug therapy; Z68.34 Body mass index [BMI] 34.0-34.9, adult
CPT/HCPCS: 36415; 74018; 80053; 82607; 83690; 83735; 85025; 85610; 85730; 86140; 96365; 96366; 96375; 99285; C9113; J1170; J2765; J7042; J7050

== ENCOUNTER 2020-08-30 06:48 | Day surgery (SDC) | payer BC ==
[~2020-08-30 06:48] MED LIST changes: +Acetaminophen 325 MG Tab PO SCH; +Albuterol 0.083% 2.5 MG/3 ML Neb Soln NEB PRN; +Morphine 8 MG, EPINEPHrine 0.3 MG, Cefuroxime 750 MG, Ketorolac 30 MG, Sodium Chloride ... PRN; +Pregabalin 25 MG Cap PO SCH; -Scopolamine 1.5 MG Transdermal Patch TOP SCH; +Scopolamine 1.5 MG Transdermal Patch TRDERM PRN; +oxyCODONE ER 10 MG TAB.ER PO SCH
[2020-08-30] MEDS ORDERED: ceFAZolin 1 GM Vial ONE ×2 (07:18→07:52)
[2020-08-30] MEDS ORDERED: Midazolam 1 MG/ML 2 ML SDV ONE (07:19)
[2020-08-30] MEDS ORDERED: Propofol 200 MG/20 ML SDV ONE ×4 (07:19→10:05)
[2020-08-30] MEDS ORDERED: Vancomycin 1 GM SDV ONE (07:31)
[2020-08-30] MEDS ORDERED: Bupivacaine 0.25% 10 ML SDV ONE ×2 (07:32→09:22)
--- NOTE | 2020-08-30 07:40 | PCM.PREANE ---
Preanesthetic Assessment - Procedure Proposed Procedure: Right THR - Anesthesia/Transfusion/Family Hx Anesthesia History: Prior Anesthesia Reaction Transfusion History: No Prior Transfusion(s) - Review of Systems General: No Symptoms Pulmonary: No Symptoms Cardiovascular: No Symptoms Gastrointestinal: No Symptoms Neurological: Pre-Existing Deficit (Rt big toe numbness) Other: Reports: None - Physical Assessment NPO Status Date: 08/29/20 NPO Status Time: 23:00 ASA Class: 2 Mental Status: Alert & Oriented x3 Airway Class: Mallampati = 3 Dentition: Reports: Normal Dentition Thyro-Mental Finger Breadths: 3 Mouth Opening Finger Breadths: 3 ROM/Head Extension: Full Lungs: Clear to Auscultation, Normal Respiratory Effort Cardiovascular: Regular Rate, Regular Rhythm - Lab Values: Laboratory Last Values Urine HCG, Qual Negative (NEGATIVE) 08/30/20 06:51 MRSA (PCR) Negative 08/18/20 09:59 - Allergies Allergies/Adverse Reactions: Allergies Allergy/AdvReac Type Severity Reaction Status Date / Time alprazolam [From Xanax] Allergy Chest Pain Verified 08/29/20 16:58 citalopram [From Celexa] Allergy Tachycardia Verified 08/29/20 16:58 gluten Allergy Nausea and Verified 08/29/20 16:58 Vomiting Iodinated Contrast Media Allergy Hives Verified 08/29/20 16:58 latex Allergy Itching Verified 08/29/20 16:58 quetiapine [From Seroquel] Allergy Tachycardia Verified 08/29/20 16:58 triamcinolone [From Kenalog] Allergy Hives Verified 08/29/20 16:58 wheat Allergy Nausea and Verified 08/29/20 16:58 Vomiting - Acknowledgements Anesthesia Type Planned: Spinal Pt an Appropriate Candidate for the Planned Anesthesia: Yes Alternatives and Risks of Anesthesia Discussed w Pt/Guardian: Yes Pt/Guardian Understands and Agrees with Anesthesia Plan: Yes Additional Comments: Recent septum surgery , no nasal trumpets!!! PreAnesthesia Questionnaire HEENT History: Reports: Allergic Rhinitis, Impaired Vision Other HEENT History: Maxillary sinus cyst, wears glasses Cardiovascular History: Reports: Heart Murmur Respiratory History: Reports: SOB, Other (See Below) Other Respiratory History: Painful respiration from rib fractures, chest tightness Gastrointestinal History: Reports: Colon Polyp Other Gastrointestinal History: Abdominal pain, celiac disease Genitourinary History: Reports: Pyelonephritis BEAN WEIGHER History: Reports: Other (See Below) Other OB/BYN History: Irregular menses, menorrhagia Other Musculoskeletal History: Rib pain, rib fractures, right hand tremor, polyarthralgia, knee pain, sacroilitis Neurological History: Reports: Vertigo, Other (See Below) Other Neuro History: Right hand tremors Psychiatric History: Reports: Anxiety, Depression, Other (See Below) Other Psychiatric History: stress, insomnia, poor sleep Endocrine/Metabolic History: Reports: Obesity/BMI 30+ Hematologic History: Reports: None Immunologic History: Reports: None Oncologic (Cancer) History: Reports: None Dermatologic History: Reports: Eczema - Infectious Disease History Infectious Disease History: Reports: None - Past Surgical History Head Surgeries/Procedures: Reports: None HEENT Surgical History: Reports: Naso-Sinus Surgery, Oral Surgery Cardiovascular Surgical History: Reports: None Respiratory Surgical History: Reports: None GI Surgical History: Reports: Appendectomy, Cholecystectomy, Colonoscopy, EGD Female Surgical History: Reports: None Endocrine Surgical History: Reports: None Neurological Surgical History: Reports: None Musculoskeletal Surgical History: Reports: Arthroscopic Knee, Other (See Below) Other Musculoskeletal Surgeries/Procedures:: Bunionectomy, right knee surgery Oncologic Surgical History: Reports: None Dermatological Surgical History: Reports: None - SUBSTANCE USE Tobacco Use Status *Q: Never Tobacco User Recreational Drug Use History: No - HOME MEDS Home Medications: Home Meds Calcium Carb/D3/Magnesium/Zinc [Lico Mag Zinc-D Tablet] 1 tab PO DAILY 02/11/18 [History] Cholecalciferol (Vitamin D3) [Vitamin D3] 5,000 unit PO DAILY 02/11/18 [History] Cyanocobalamin (Vitamin B12) [Vitamin B12] 1,000 mcg PO DAILY 02/11/18 [History] Loratadine [Claritin] 10 mg PO DAILY PRN 02/11/18 [History] Multivitamin [Daily Multiple Vitamin] 1 tab PO DAILY 02/11/18 [History] Vitamin B6-pyridOXINE [Vitamin B6] 100 mg PO DAILY 02/11/18 [History] Ascorbic Acid [Vitamin C] 1,000 mg PO DAILY 08/29/20 [History] Ashwagandha Root Extract 300 mg PO BEDTIME 08/29/20 [History] Aspirin [Aspirin EC] 325 mg PO BID #70 tab 08/29/20 [Rx] Budesonide [Pulmicort Flexhaler] 1 puff INH BID 08/29/20 [History] Calcium Carb/Vitamin D3/Vit K1 [Calcium + D Soft Chewable Tab] 1 tab PO DAILY 08/29/20 [History] Cyclobenzaprine [Flexeril] 10 mg PO BID PRN #20 tab 08/29/20 [Rx] Dupilumab [Dupixent Pen] 300 mg SQ Q14D 08/29/20 [History] EPINEPHrine [Epipen] 1 dose IM ASDIRECTED PRN 08/29/20 [History] L.acidoph,Paracasei, B.lactis [Probiotic] 1 cap PO DAILY 08/29/20 [History] Propranolol HCl [Propranolol] 60 mg PO DAILY 08/29/20 [History] Thiamine [Vitamin B-1] 100 mg PO DAILY 08/29/20 [History] Zinc 50 mg PO DAILY 08/29/20 [History] oxyCODONE 5 - 10 mg PO Q4H PRN #40 tab 08/29/20 [Rx] - CURRENT (IN HOUSE) MEDS Current Meds: Current Medications Acetaminophen (Tylenol) 975 mg PO ONETIME ZUHAIR Stop: 08/30/20 12:00 Last Admin: 08/30/20 07:13 Dose: 975 mg Documented by: Albuterol (Proventil Neb Soln) 2.5 mg NEB ONETIME PRN PRN Reason: bronchodilation Stop: 08/30/20 18:00 Morphine Sulfate 8 mg/Epinephrine HCl 0.3 mg/Cefuroxime Sodium 750 mg/Ketorolac Tromethamine 30 mg/Sodium Chloride 7.9 ml 0 mg .XX ASDIRECTED PRN PRN Reason: Pain Stop: 08/30/20 13:00 Lactated Ringer's (Ringers, Lactated) 1,000 mls @ 125 mls/hr IV ASDIRECTED ZUHAIR Stop: 08/30/20 23:00 Lidocaine/Sodium Bicarbonate (Buffered Lidocaine 1% In Ns 8.4%) 0.25 ml IDERM ONETIME PRN PRN Reason: Prior to IV Start Stop: 08/30/20 18:00 Oxycodone HCl (Oxycontin) 10 mg PO ONETIME ZUHAIR Stop: 08/30/20 12:00 Last Admin: 08/30/20 07:11 Dose: 10 mg Documented by: Pregabalin (Lyrica) 50 mg PO ONETIME ZUHAIR Stop: 08/30/20 12:00 Last Admin: 08/30/20 07:11 Dose: 50 mg Documented by: Scopolamine (Transderm-Scop) 1.5 mg TRDERM ONETIME PRN PRN Reason: ponv Stop: 08/30/20 18:00 Last Admin: 08/30/20 07:11 Dose: 1.5 mg Documented by: Sodium Chloride (Saline Flush) 10 ml FLUSH ASDIRECTED PRN PRN Reason: Keep Vein Open Stop: 08/30/20 18:00 Discontinued Medications Cefazolin Sodium (Ancef) Confirm Administered Dose 2 gm .ROUTE .STK-MED ONE Stop: 08/30/20 07:19 Midazolam HCl (Versed 1 Mg/Ml) Confirm Administered Dose 4 mg .ROUTE .STK-MED ONE Stop: 08/30/20 07:20 Propofol (Diprivan 20 Ml) Confirm Administered Dose 400 mg .ROUTE .STK-MED ONE Stop: 08/30/20 07:20
[2020-08-30] MEDS ORDERED: Lidocaine 1% 4 ML ONE (08:28)
[2020-08-30] MEDS ORDERED: Lactated Ringers 1,000 ML ONE (08:39)
[2020-08-30] MEDS ORDERED: HYDROmorphone 0.5 MG/0.5 ML Syringe IVPUSH PRN (09:08)
[2020-08-30] MEDS ORDERED: fentaNYL 100 MCG/2 ML SDV IVPUSH PRN (09:08)
--- NOTE | 2020-08-30 10:58 | PCM.POSTAN ---
POST ANESTHESIA ASSESSMENT - MENTAL STATUS Mental Status: Somnolent - VITAL SIGNS Vital Signs: Last Vital Signs Temp 97.9 F 08/30/20 10:41 Pulse 68 08/30/20 10:55 Resp 17 08/30/20 10:55 BP 125/87 08/30/20 10:55 Pulse Ox 100 08/30/20 10:55 - RESPIRATORY Respiratory Status: Respiratory Rate WNL, Airway Patent, O2 Saturation Stable - CARDIOVASCULAR CV Status: Pulse Rate WNL, Blood Pressure Stable - GASTROINTESTINAL GI Status: No Symptoms - PAIN Pain Score: 0 (post SAB) - POST OP HYDRATION Hydration Status: Adequate & Stable
--- NOTE | 2020-08-30 11:30 | CR ---
Pelvis and right hip: AP view of the pelvis was obtained as well as crosstable lateral view of the right hip. Comparison: No prior pelvis study is available. Right hip prosthesis is noted. Components are aligned. Soft tissue air is noted from the surgical procedure. Slight deformity of the left hip is seen which is felt to be congenital. Minimal joint space narrowing is seen within the left hip. No acute fracture or other abnormality is appreciated. Impression: 1. Satisfactory appearance of recently placed right hip prosthesis. 2. Minimal deformity of the left hip with mild joint space narrowing. Diagnostic code #2
[2020-08-30] MEDS ORDERED: oxyCODONE 5 MG Tab PO ONE (14:05)
--- NOTE | 2020-08-30 14:15 | PCM48HPAN ---
Post Anesthesia Note - EVALUATION WITHIN 48HRS OF ANESTHETIC Vital Signs in Normal Range: Yes Patient Participated in Evaluation: Yes Respiratory Function Stable: Yes Airway Patent: Yes Cardiovascular Function Stable: Yes Hydration Status Stable: Yes Pain Control Satisfactory: Yes Nausea and Vomiting Control Satisfactory: Yes Mental Status Recovered: Yes Vital Signs: Last Vital Signs Temp 97.9 F 08/30/20 12:30 Pulse 67 08/30/20 12:30 Resp 20 08/30/20 12:30 BP 102/92 H 08/30/20 12:30 Pulse Ox 100 08/30/20 12:30 - COMMENTS/OBSERVATIONS Free Text/Narrative:: Patient is ready to be discharged home
[2020-08-30 15:44] VITALS: BP 138/83; PULSE 78
--- NOTE | 2020-09-06 11:46 | PCM.OPNOTE ---
- General Post-Op/Procedure Note Date of Surgery/Procedure: 08/30/20 Operative Procedure(s): right total hip arthroplasty Pre Op Diagnosis: right hip osteoarthrosis Post-Op Diagnosis: Same Anesthesia Technique: Local, MAC, Spinal Primary Surgeon: Ton Billy Anesthesia Provider: Amadou Acosta Clinical Engineer: Elsa Louie Clinical Engineer: Flakita Warren EBL in mLs: 200 Complications: None Condition: Good Free Text/Narrative:: 52 5 stem 28+0 MDM
--- NOTE | 2020-09-18 08:53 | OR ---
DATE OF OPERATION: 08/30/2020 SURGEON: Ton Billy MD OPERATION PERFORMED: Right total hip arthroplasty. PREOPERATIVE DIAGNOSIS: Right hip osteoarthrosis. POSTOPERATIVE DIAGNOSIS: Right hip osteoarthrosis. ANESTHESIA: Local MAC with spinal. ANESTHESIA PROVIDER: Zeynep Medina. CONTINUOUS YARN DYEING MACHINE OPERATOR: Elsa Louie PA-C and Flakita Warren LPN. ESTIMATED BLOOD LOSS: 200 mL. COMPLICATIONS: None. CONDITION: Stable. IMPLANT: 1. Framingham size 54 mm solid Tritanium II acetabular cup. 2. Carmella size 4 Accolade II stem. 3. Framingham size 28 +0 MDM components. DESCRIPTION OF PROCEDURE: The patient was identified in the preoperative holding area. Proper site was marked and identified by the surgeon. The patient was taken back to the operative theater where after adequate anesthesia, the patient was placed in the left lateral decubitus position. Pegs were then placed. Axillary roll was placed. The patient's gluteal fold was parallel to the floor. All bony prominences were well padded. The patient's right hip was then sterilely prepped and draped in the usual sterile fashion. OR time-out was performed. The patient received 2 g IV Ancef. Standard posterior incision was made centered over the greater trochanter. This was taken down the IT band and gluteal fascia which was incised along the incisional length. Please note, the patient did have a very large fat layer, so it was very difficult to get visualization as well as be able to see and place retractors secondary to the large amount of adipose tissue compared to normal total hip. At this time, the Charnley retractor was then placed. Short external rotators identified and takedown of short external rotators as well as the capsule was done from the level of the piriformis down to the lesser trochanter. Hip was then dislocated. Neck cut was then completed. Attention was turned to the acetabulum. Anterior posterior acetabular retractors were placed. I did have to place 4 retractors as it did have significant difficulties with visualization secondary to the patient's adipose tissue. Circumferential removal of the labrum as well as pulvinar was done at this time. Starting with a 48 reamer, I was able to ream up to a 54 which was found to have a good bony bleeding bed. The cup was then impacted into place in an anatomic position for the patient and the MDM liner was impacted into place. Attention was turned to the femur. Box chisel was used out laterally. Starter awl was placed down the canal. Starting with the 0 broach, I was able to broach up to a size 4 which was found to be rotationally and vertically stable. A 28 +0 trial components were placed. The patient's hip was brought through range of motion and was found to be stable throughout range of motion with no signs of dislocation. Bone hook was used to dislocate the hip. Trial implants were removed. The size 4 Accolade II stem was impacted into place and then the 28 +0 MDM components were impacted onto the stem. Hip was relocated. #5 Ethibond suture was used for the closure of the short external rotators and capsule. 1 L of Irrisept irrigation was irrigated through the hip along with 1 L pulse lavage irrigation with Ancef. Topical tranexamic acid and vancomycin powder were applied. Periarticular injection was completed. A #2 barbed suture was used for closure of the IT band and gluteal fascia. Multiple adipose tissue layers were then closed using 0 Vicryl. 2-0 Vicryl was used subcutaneously and Prineo was used for the skin. The patient was placed in a sterile soft dressing and sent to PACU in stable condition. Please note, again this patient's total hip was much more difficult secondary to the patient's BMI and adipose tissue layer. MMMANOLO /[id number]
== END 2020-08-30 15:11 | disposition home or self-care (01) ==
LOC: JD.SDS 06:48
PROVIDERS: ATTEND Orthopaedic Surgery
DX: M16.11 Unilateral primary osteoarthritis, right hip (principal); F41.9 Anxiety disorder, unspecified; R01.1 Cardiac murmur, unspecified; M79.7 Fibromyalgia; F32.9 Major depressive disorder, single episode, unspecified; G89.29 Other chronic pain; E66.9 Obesity, unspecified; Z88.8 Allergy status to other drugs, medicaments and biological substances; Z91.040 Latex allergy status; Z98.890 Other specified postprocedural states; Z90.49 Acquired absence of other specified parts of digestive tract; Z79.899 Other long term (current) drug therapy; Z68.41 Body mass index [BMI] 40.0-44.9, adult
CPT/HCPCS: 27130; 36415; 73501; 81025; 86850; 86900; 86901; 87641; 97116; 97165; A9270; C1776; J0171; J0690; J0697; J1885; J2001; J2250; J2270; J2704; J3370; J3490; J7120; 01214

== ENCOUNTER 2021-12-05 09:25 | Emergency (ER) | payer BC ==
[2021-12-05 09:56] VITALS: BP 139/87; PULSE 77
[2021-12-05] MEDS ORDERED: Ketorolac 30 MG/ML SDV IVPUSH ONE (10:49)
[2021-12-05] MEDS ORDERED: Ondansetron 4 MG/2 ML SDV IVPUSH ONE (10:49)
[2021-12-05] MEDS ORDERED: Sodium Chloride 0.9% 1,000 ML IV STA (10:49)
[2021-12-05] MEDS ORDERED: Acetaminophen 325 MG Tab PO ONE (12:51)
== END 2021-12-05 13:20 | disposition home or self-care (01) ==
LOC: JD.ED 09:25
DX: N83.202 Unspecified ovarian cyst, left side (principal); E66.9 Obesity, unspecified; Z91.041 Radiographic dye allergy status; Z88.5 Allergy status to narcotic agent; Z91.018 Allergy to other foods; Z91.040 Latex allergy status; Z88.8 Allergy status to other drugs, medicaments and biological substances; Z79.01 Long term (current) use of anticoagulants; Z68.38 Body mass index [BMI] 38.0-38.9, adult
CPT/HCPCS: 76830; 81001; 96374; 96375; 99284; A9270; J1885; J2405; J7030; 99285

== ENCOUNTER 2021-12-11 20:49 | Emergency (ER) | payer BC ==
[2021-12-11] MEDS ORDERED: Ketorolac 15 MG/ML SDV IM ONE (21:12)
[2021-12-11] MEDS ORDERED: Ondansetron 4 MG Tab.DIS PO ONE (21:12)
[2021-12-11] MEDS ORDERED: Acetaminophen/HYDROcodone 325-10 MG Tab PO ONE (21:12)
[2021-12-11] MEDS ORDERED: Morphine 4 MG/ML Syringe IVPUSH ONE (22:25)
[2021-12-11] MEDS ORDERED: Sodium Chloride 0.9% 10 ML SDV FLUSH ONE (22:49)
[2021-12-11] MEDS ORDERED: Iopamidol 612 MG/ML 100 ML Bottle IVPUSH ONE (22:49)
[2021-12-11] MEDS ORDERED: Sodium Chloride 0.9% 1,000 ML IV ONE (23:02)
[2021-12-11] MEDS ORDERED: diphenhydrAMINE 50 MG/ML SDV IVPUSH ONE (23:02)
[2021-12-11 23:05] VITALS: BP 137/81
[2021-12-11] MEDS ORDERED: Polyethylene Glycol 3350 Powder 17 GM Packet PO ONE (23:21)
[2021-12-11 23:43] VITALS: PULSE 78
== END 2021-12-11 23:40 | disposition home or self-care (01) ==
LOC: JD.ED 20:49
DX: K59.00 Constipation, unspecified (principal); E66.9 Obesity, unspecified; Z91.040 Latex allergy status; Z91.041 Radiographic dye allergy status; Z91.018 Allergy to other foods; Z88.5 Allergy status to narcotic agent; Z79.01 Long term (current) use of anticoagulants; Z79.899 Other long term (current) drug therapy; Z68.37 Body mass index [BMI] 37.0-37.9, adult
CPT/HCPCS: 36415; 74177; 80053; 81001; 81025; 83690; 85025; 96372; 96374; 96375; 99284; A9270; J1200; J1885; J2270; J7030; Q9967

== ENCOUNTER 2022-02-04 20:55 | Emergency (ER) | payer BC ==
[2022-02-04 21:09] VITALS: BP 148/94; PULSE 80
[2022-02-04] MEDS ORDERED: diphenhydrAMINE 50 MG/ML SDV IVPUSH ONE (21:26)
[2022-02-04] MEDS ORDERED: Metoclopramide 10 MG/2 ML SDV IVPUSH ONE (21:26)
[2022-02-04] MEDS ORDERED: Lactated Ringers 1,000 ML IV ONE (21:26)
[2022-02-04] MEDS ORDERED: Ketorolac 15 MG/ML SDV IVPUSH ONE (21:26)
[2022-02-04] MEDS ORDERED: Morphine 4 MG/ML Syringe IVPUSH ONE (23:04)
[2022-02-04] MEDS ORDERED: Ondansetron 4 MG/2 ML SDV IVPUSH ONE (23:04)
== END 2022-02-05 00:25 | disposition home or self-care (01) ==
LOC: JD.ED 20:55
DX: R10.31 Right lower quadrant pain (principal); E66.9 Obesity, unspecified; Z68.37 Body mass index [BMI] 37.0-37.9, adult; Z86.16 Personal history of COVID-19; Z90.49 Acquired absence of other specified parts of digestive tract; Z79.899 Other long term (current) drug therapy; Z91.041 Radiographic dye allergy status; Z91.040 Latex allergy status; Z88.8 Allergy status to other drugs, medicaments and biological substances; Z91.018 Allergy to other foods
CPT/HCPCS: 36415; 80053; 81001; 81025; 85025; 96361; 96374; 96375; 99284; J1200; J1885; J2270; J2405; J2765; J7120; 99282

== ENCOUNTER 2022-07-24 09:41 | Day surgery (SDC) | payer BC ==
[~2022-07-24 09:41] MED LIST changes: -Acetaminophen 325 MG Tab PO SCH; -Albuterol 0.083% 2.5 MG/3 ML Neb Soln NEB PRN; -Pregabalin 25 MG Cap PO SCH; -Scopolamine 1.5 MG Transdermal Patch TRDERM PRN; +Sodium Chloride 0.9% 10 ML Syringe FLUSH SCH; -oxyCODONE ER 10 MG TAB.ER PO SCH
[2022-07-24 09:50] VITALS: PULSE 95
[2022-07-24] MEDS ORDERED: Tranexamic Acid 1,000 MG/10 ML Vial ONE (10:14)
[2022-07-24] MEDS ORDERED: Vancomycin 1 GM SDV ONE (10:14)
[2022-07-24] MEDS ORDERED: Midazolam 1 MG/ML 2 ML SDV ONE (11:04)
[2022-07-24] MEDS ORDERED: fentaNYL 100 MCG/2 ML SDV ONE (11:04)
[2022-07-24] MEDS ORDERED: Propofol 200 MG/20 ML SDV ONE ×2 (11:24→12:20)
[2022-07-24] MEDS ORDERED: Lidocaine 1% PF 2 ML SDV ONE (11:30)
[2022-07-24] MEDS ORDERED: ceFAZolin 2 GM Vial ONE ×2 (11:53→11:55)
[2022-07-24] MEDS ORDERED: Lactated Ringers 1,000 ML ONE (12:16)
[2022-07-24] MEDS ORDERED: diphenhydrAMINE 50 MG/ML SDV IVPUSH SCH (14:36)
[2022-07-24] MEDS ORDERED: Acetaminophen/HYDROcodone 325-5 MG Tab PO ONE (14:45)
[2022-07-24] MEDS ORDERED: Ondansetron 4 MG/2 ML SDV ONE (16:01)
[2022-07-24 16:49] VITALS: BP 124/78
[2022-07-25] MEDS ORDERED: Morphine 8 MG, EPINEPHrine 0.3 MG, Cefuroxime 750 MG, Ketorolac 30 MG, Sodium Chloride ... PRN ×5 (06:00)
== END 2022-07-24 16:40 | disposition home or self-care (01) ==
LOC: JD.SDS 09:41
PROVIDERS: ATTEND Orthopaedic Surgery
DX: M16.12 Unilateral primary osteoarthritis, left hip (principal); E66.9 Obesity, unspecified; F41.9 Anxiety disorder, unspecified; M79.7 Fibromyalgia; M19.90 Unspecified osteoarthritis, unspecified site; G47.30 Sleep apnea, unspecified; Z79.899 Other long term (current) drug therapy; Z91.041 Radiographic dye allergy status; Z88.1 Allergy status to other antibiotic agents; Z88.8 Allergy status to other drugs, medicaments and biological substances; Z91.040 Latex allergy status; Z90.49 Acquired absence of other specified parts of digestive tract; Z98.890 Other specified postprocedural states; Z68.41 Body mass index [BMI] 40.0-44.9, adult; Z86.16 Personal history of COVID-19
CPT/HCPCS: 0055T; 27130; 36415; 73501; 85610; 85730; 86850; 86900; 86901; 97110; 97116; 97161; A9270; C1713; C1776; J0171; J0690; J0697; J1885; J2250; J2270; J2405; J2704; J3010; J3370; J7120; 01214

== ENCOUNTER 2023-06-02 11:06 | Emergency (ER) | payer BC ==
[2023-06-02 15:02] LABS: BASOPHILS PERCENT AUTO 0.5 % (0.0-1.0); EOSINOPHILS ABSOLUTE AUTO 0.4 K/mm3 (0.0-0.4); EOSINOPHILS PERCENT AUTO 4.4 % (0.0-6.0); HEMATOCRIT 41.8 % (37.0-47.0); HEMOGLOBIN 13.8 gm/dl (12.0-16.0); IMMATURE GRAN ABSOLUTE AUTO 0.02 K/mm3 (0.00-0.05); IMMATURE GRAN PERCENT AUTO 0.2 % (0.0-0.4); LYMPHOCYTES ABSOLUTE AUTO 2.5 K/mm3 (1.0-4.8); LYMPHOCYTES PERCENT AUTO 28.4 % (24.0-44.0); MEAN CORPUSCULAR HEMOGLOBIN 29.4 pg (28.0-32.0); MEAN CORPUSCULAR VOLUME 88.9 fl (83.0-99.0); MEAN PLATELET VOLUME 9.1 fl (9.4-12.3); MONOCYTES ABSOLUTE AUTO 0.4 K/mm3 (0.0-0.8); MONOCYTES PERCENT AUTO 4.4 % (0.0-8.0); NEUTROPHILS ABSOLUTE AUTO 5.4 K/mm3 (1.8-7.7); NEUTROPHILS PERCENT AUTO 62.1 % (41.0-71.0); PLATELET COUNT,PLT 335 K/mm3 (150-400); WHITE BLOOD CELL COUNT,WBC 8.64 K/mm3 (3.9-11.3)
[2023-06-02 15:44] LABS: A/G RATIO 0.8 (1-2); ALBUMIN 3.7 g/dl (3.4-5.0); ANION GAP 12.8 (5-15); BILIRUBIN TOTAL 0.2 mg/dL (0.2-1.0); BUN/CREATININE RATIO 12.5 (14-18); C-REACTIVE PROTEIN 2.1 mg/dL (<1.0); CALCIUM 9.5 mg/dL (8.5-10.1); CREATININE 0.8 mg/dL (0.55-1.02); EST CRCL DRUG DOSING (CG) 107.5 mL/min; POTASSIUM,K 3.8 mEq/L (3.5-5.1); PROTEIN TOTAL,TP 8.2 g/dl (6.4-8.2)
[2023-06-02] MEDS ORDERED: Ketorolac 60 MG/2 ML SDV IM ONE (16:50)
[2023-06-02 17:58] VITALS: BP 144/71; PULSE 88
== END 2023-06-02 17:20 | disposition home or self-care (01) ==
LOC: JD.ED 11:06
DX: R07.89 Other chest pain (principal); E66.9 Obesity, unspecified; Z86.16 Personal history of COVID-19; Z79.02 Long term (current) use of antithrombotics/antiplatelets; Z79.899 Other long term (current) drug therapy; Z91.048 Other nonmedicinal substance allergy status; Z91.018 Allergy to other foods; Z88.8 Allergy status to other drugs, medicaments and biological substances; Z91.040 Latex allergy status
CPT/HCPCS: 36415; 71046; 80053; 84484; 85025; 85379; 86140; 93005; 96372; 99285; J1885; 93010; 99284